=== PATIENT | female | born 1975 ===

== ENCOUNTER 2022-11-27 09:15 | Inpatient (IN) | payer OTHER ==
[~2022-11-27] VITALS: Ht 162.6 cm; Wt 97.5 kg
[2022-11-30 15:56] LABS: HEMATOCRIT 40.2 % (36.0-45.00); HEMOGLOBIN 13.1 g/dL (12.0-15.00); MEAN CORPUSCULAR HEMOGLOBIN 29.4 pg (27.00-32.0); MEAN CORPUSCULAR HGB CONC 32.6 g/dl (32.0-36.0); PLATELET COUNT 313 K/uL (150-450); RED BLOOD COUNT 4.46 M/uL (4.00-6.00); RED CELL DISTRIBUTION WIDTH 13.2 % (11.5-14.5)
[2022-12-01 06:20] LABS: HEMATOCRIT 38.7 % (36.0-45.00); MEAN CELL VOLUME 88.9 fL (80.00-100.00); MEAN CORPUSCULAR HEMOGLOBIN 29.8 pg (27.00-32.0); MEAN CORPUSCULAR HGB CONC 33.5 g/dl (32.0-36.0); PLATELET COUNT 339 K/uL (150-450); RED BLOOD COUNT 4.35 M/uL (4.00-6.00); RED CELL DISTRIBUTION WIDTH 13.1 % (11.5-14.5)
[2022-12-03] MEDS ORDERED: OXYC1TAB9 PO (08:09)
[2022-12-03] MEDS ORDERED: DOCUSATE SODIU100 MG PO (08:09)
[2022-12-03] MEDS ORDERED: CEFADROXIL500 MG PO (08:09)
[2022-12-03] MEDS ORDERED: SIMETHICONE125 M1 PO (08:09)
== END 2022-12-03 10:25 | disposition home or self-care (01) | DRG 743 ==
LOC: O/R 11-30 04:50 → OB/GYN 11-30 04:50 → EDBD 11-30 09:15 → SURG 11-30 09:15 → OB/GYN 11-30 13:05
PROVIDERS: ADMIT Obstetrics & Gynecology; ATTEND Obstetrics & Gynecology
PROC: 0UT70ZZ Resection of Bilateral Fallopian Tubes, Open Approach (ICD-10-PCS; 2022-11-30)
PROC: 0UT90ZZ Resection of Uterus, Open Approach (ICD-10-PCS; principal; 2022-11-30 08:16)
DX: D25.1 Intramural leiomyoma of uterus (principal); N72 Inflammatory disease of cervix uteri; Z20.822 Contact with and (suspected) exposure to COVID-19